=== PATIENT | male | born 1995 | race Caucasian/White ===

== ENCOUNTER 2021-02-02 18:59 | Emergency (ER) | payer OTHER ==
--- NOTE | 2021-02-02 19:54 | EDM.PDOC ---
ED HPI GENERAL MEDICAL PROBLEM - General Chief Complaint: Chest Pain Stated Complaint: CHEST PAIN Time Seen by Provider: 02/02/21 19:20 Source of Information: Reports: Patient History Limitations: Reports: No Limitations - History of Present Illness INITIAL COMMENTS - FREE TEXT/NARRATIVE: Mr. Cedeno is a very pleasant 25 year old man who now presents to the ED stating that he developed sudden-onset central chest pain around 08:00 CDT this morning, while at work. He describes the pain as a pressure-like sensation if he takes a deep breath, moves quickly, lifts something, bends over, or squats, and an achy sensation if he remains still. He has associated dyspnea and diaphoresis, but no nausea or sense of impending doom. No prior similar symptoms. The patient also reports of developing anterior throat pain around 1500. He states that it feels like his neck is swollen, and that is painful to swallow. He also states that he feels like his voice has changed. The patient states that he took some acetaminophen (he believes it was), with no improvement of his symptoms. Here in the ED, the patient is found to be hemodynamically stable, afebrile, saturating 100% on room air. He appears to be comfortable, in no acute distress. Prior to 8:00 this morning, the patient denies having a recent fever, chills, sore throat, ear pain, nasal or sinus congestion, cough, dyspnea, chest pain, palpitations, nausea, vomiting, constipation, diarrhea, abdominal pain, urinary symptoms, recent weight gain or weight loss, recent bloody bowel movements or black bowel movements, recent joint aches, headaches, or rashes. The patient's PCP is Annabelle Mcclellan NP. He has not received a COVID vaccination. Chest Pain Score (Numeric/FACES): 5 - Related Data Allergies Allergy/AdvReac Type Severity Reaction Status Date / Time No Known Allergies Allergy Verified 02/02/21 19:11 Home Meds: Home Meds Dextroamphetamine/Amphetamine [Adderall 20 mg Tablet] 30 mg PO BID 02/02/21 [History] Past Medical History Psychiatric History: Reports: ADHD Social & Family History - Tobacco Use Tobacco Use Status *Q: Never Tobacco User Tobacco Use Within Last Twelve Months: Vaping (Nicotine) Second Hand Smoke Exposure: No - Caffeine Use Caffeine Use: Reports: Coffee - Alcohol Use Alcohol Use History: No - Recreational Drug Use Recreational Drug Use: No - Living Situation & Occupation Living situation: Reports: , with Spouse, with Family (2 kids) 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 ED EXAM, GENERAL - Physical Exam Exam: See Below Exam Limited By: No Limitations General Appearance: Alert, WD/WN, No Apparent Distress Eye Exam: Bilateral Eye: EOMI, Normal Inspection Ears: Normal External Exam, Normal Canal, Hearing Grossly Normal, Normal TMs Nose: Normal Inspection, Normal Mucosa, No Blood Throat/Mouth: Normal Inspection, Normal Lips, Normal Teeth, Normal Gums, Normal Oropharynx, Normal Voice, No Airway Compromise Head: Atraumatic, Normocephalic Neck: Normal Inspection, Supple, Non-Tender, Full Range of Motion. No: Carotid Bruit (either side), Limited Range of Motion, Lymphadenopathy (L), Lymphadenopathy (R), Tender Lateral, Tender Midline, Thyromegaly Respiratory/Chest: No Respiratory Distress, Lungs Clear, Normal Breath Sounds, No Accessory Muscle Use, Chest Non-Tender, Other (Central chest pain is reproduced by having the patient press his hands together with outstretched arms in front of him. Pain is not reproduced by having him across either arm across his chest.) Cardiovascular: Normal Peripheral Pulses, Regular Rate, Rhythm, No Edema, No Gallop, No JVD, No Murmur, No Rub. No: Diastolic Murmur, Systolic Murmur Peripheral Pulses: 3+: Radial (L), Radial (R) GI/Abdominal: Normal Bowel Sounds, Soft, Non-Tender, No Organomegaly, No Distention, No Abnormal Bruit, No Mass Back Exam: Normal Inspection, Full Range of Motion, NT Extremities: Normal Inspection, Normal Range of Motion, No Pedal Edema, Normal Capillary Refill Neurological: Alert, Oriented, Normal Cognition, No Motor/Sensory Deficits Psychiatric: Normal Affect Skin Exam: Warm, Dry, Intact, Normal Color, No Rash #1 Interpretation EKG Date: 02/02/21 Time: 19:10 Rhythm: NSR Rate (Beats/Min): 81 Prosperity: Normal P-Wave: Present QRS: Normal ST-T: Normal QT: Normal Comparison: NA - No Prior EKG Course - Vital Signs Last Recorded V/S: Last Vital Signs Temp 36.8 C 02/02/21 19:09 Pulse 91 02/02/21 19:09 Resp 15 02/02/21 19:09 BP 137/80 02/02/21 19:09 Pulse Ox 100 02/02/21 19:09 Orthostatic Blood Pressure [ 117/72 Standing] Orthostatic Blood Pressure [ 123/65 Supine] - Orders/Labs/Meds Orders: Active Orders 24 hr Category Date Time Status Orthostatic Vital Signs [RC] STAT Care 02/02/21 19:43 Active Ang Chest [CT] Stat Exams 02/02/21 19:45 Taken Chest 2V [CR] Stat Exams 02/02/21 19:44 Taken BLOOD CULTURE [MREF] Stat Lab 02/02/21 22:05 Received BLOOD CULTURE [MREF] Stat Lab 02/02/21 22:12 Received Fluconazole/Normal Saline [Diflucan in NS 200 MG/100 ML Med 02/02/21 22:18 Active ] 200 mg Premix Bag 1 bag IV ONETIME Sodium Chloride 0.9% [Normal Saline] 1,000 ml Med 02/02/21 20:00 Active IV ASDIRECTED Sodium Chloride 0.9% [Normal Saline] 100 ml Med 02/02/21 20:45 Active IV ASDIRECTED Blood Culture x2 Reflex Set [OM.PC] Stat Oth 02/02/21 21:44 Ordered Isolation [COMM] Routine Oth 02/02/21 21:28 Ordered Medication Orders Sodium Chloride (Normal Saline) 1,000 mls @ 150 mls/hr IV ASDIRECTED DALJIT Last Admin: 02/02/21 19:59 Dose: 150 mls/hr Documented by: MARYAM Sodium Chloride (Normal Saline) 100 mls @ 100 mls/min IV ASDIRECTED DALJIT Last Admin: 02/02/21 20:39 Dose: 100 mls/min Documented by: KALEB Fluconazole/Sodium Chloride (200 mg/ Premix) 100 mls @ 100 mls/hr IV ONETIME STA Stop: 02/02/21 23:17 Last Admin: 02/02/21 22:43 Dose: 100 mls/hr Documented by: BONNIE Labs: Laboratory Tests 02/02/21 02/02/21 02/02/21 Range/Units 19:39 19:52 19:52 WBC 10.85 H (4.23-9.07) K/mm3 RBC 4.83 (4.63-6.08) M/mm3 Hgb 14.3 (13.7-17.5) gm/dl Hct 40.4 (40.1-51.0) % MCV 83.6 (79.0-92.2) fl MCH 29.6 (25.7-32.2) pg MCHC 35.4 (32.2-35.5) g/dl RDW Std Deviation 36.6 (35.1-43.9) fL Plt Count 229 (163-337) K/mm3 MPV 9.6 (9.4-12.3) fl Neutrophils % (Manual) 70 H (40-60) % Band Neutrophils % 0 (0-10) % Lymphocytes % (Manual) 22 (20-40) % Atypical Lymphs % 0 % Monocytes % (Manual) 8 (2-10) % Eosinophils % (Manual) 0 L (0.8-7.0) % Basophils % (Manual) 0 L (0.2-1.2) Platelet Estimate Adequate RBC Morph Comment Normal D-Dimer, Quantitative 1.16 H (0.19-0.50) mg/L Sodium (136-145) mEq/L Potassium (3.5-5.1) mEq/L Chloride (98-107) mEq/L Carbon Dioxide (21-32) mEq/L Anion Gap (5-15) BUN (7-18) mg/dL Creatinine (0.7-1.3) mg/dL Est Cr Clr Drug Dosing mL/min Estimated GFR (MDRD) (>60) mL/min BUN/Creatinine Ratio (14-18) Glucose (70-99) mg/dL Calcium (8.5-10.1) mg/dL Total Bilirubin (0.2-1.0) mg/dL AST (15-37) U/L ALT (16-63) U/L Alkaline Phosphatase (46-116) U/L Troponin I (0.00-0.056) ng/mL Total Protein (6.4-8.2) g/dl Albumin (3.4-5.0) g/dl Globulin gm/dL Albumin/Globulin Ratio (1-2) SARS-CoV-2 RNA (MARNIE) (NEGATIVE) Group A Strep (PCR) Not detected (NOT DETECT) 02/02/21 02/02/21 Range/Units 19:52 19:57 WBC (4.23-9.07) K/mm3 RBC (4.63-6.08) M/mm3 Hgb (13.7-17.5) gm/dl Hct (40.1-51.0) % MCV (79.0-92.2) fl MCH (25.7-32.2) pg MCHC (32.2-35.5) g/dl RDW Std Deviation (35.1-43.9) fL Plt Count (163-337) K/mm3 MPV (9.4-12.3) fl Neutrophils % (Manual) (40-60) % Band Neutrophils % (0-10) % Lymphocytes % (Manual) (20-40) % Atypical Lymphs % % Monocytes % (Manual) (2-10) % Eosinophils % (Manual) (0.8-7.0) % Basophils % (Manual) (0.2-1.2) Platelet Estimate RBC Morph Comment D-Dimer, Quantitative (0.19-0.50) mg/L Sodium 138 (136-145) mEq/L Potassium 3.2 L (3.5-5.1) mEq/L Chloride 101 (98-107) mEq/L Carbon Dioxide 26 (21-32) mEq/L Anion Gap 14.2 (5-15) BUN 22 H (7-18) mg/dL Creatinine 1.1 (0.7-1.3) mg/dL Est Cr Clr Drug Dosing 106.92 mL/min Estimated GFR (MDRD) > 60 (>60) mL/min BUN/Creatinine Ratio 20.0 H (14-18) Glucose 95 (70-99) mg/dL Calcium 9.3 (8.5-10.1) mg/dL Total Bilirubin 1.1 H (0.2-1.0) mg/dL AST 22 (15-37) U/L ALT 21 (16-63) U/L Alkaline Phosphatase 64 (46-116) U/L Troponin I < 0.017 (0.00-0.056) ng/mL Total Protein 7.6 (6.4-8.2) g/dl Albumin 4.5 (3.4-5.0) g/dl Globulin 3.1 gm/dL Albumin/Globulin Ratio 1.5 (1-2) SARS-CoV-2 RNA (MARNIE) Negative (NEGATIVE) Group A Strep (PCR) (NOT DETECT) Meds: Medications Generic Name Dose Route Start Last Admin Trade Name Freq PRN Reason Stop Dose Admin Sodium Chloride 1,000 mls @ 150 mls/hr 02/02/21 20:00 02/02/21 19:59 Normal Saline IV 150 mls/hr ASDIRECTED DALJIT Administration Sodium Chloride 100 mls @ 100 mls/min 02/02/21 20:45 02/02/21 20:39 Normal Saline IV 100 mls/min ASDIRECTED DALJIT Administration Fluconazole/Sodium Chloride 100 mls @ 100 mls/hr 02/02/21 22:18 02/02/21 22: 43 200 mg/ Premix IV 02/02/21 23:17 100 mls/hr ONETIME STA Administration Discontinued Medications Generic Name Dose Route Start Last Admin Trade Name Freq PRN Reason Stop Dose Admin Piperacillin Sod/Tazobactam 100 mls @ 200 mls/hr 02/02/21 21:39 02/02/21 21:54 Sod 4.5 gm/ Sodium Chloride IV 02/02/21 22:08 200 mls/hr ONETIME ONE Administration Iopamidol 100 ml 02/02/21 20:38 02/02/21 20:39 Iopamidol 755 Mg/Ml 100 Ml Bottle IVPUSH 02/02/21 20:39 100 ml ONETIME ONE Administration Potassium Chloride 20 meq 02/02/21 20:38 02/02/21 21:03 Potassium Chloride 20 Meq Tab.Er PO 02/02/21 20:39 20 meq ONETIME ONE Administration Sodium Chloride 10 ml 02/02/21 20:38 02/02/21 20:40 Sodium Chloride 0.9% 10 Ml Sdv FLUSH 02/02/21 20:39 10 ml ONETIME ONE Administration - Re-Assessments/Exams Free Text/Narrative Re-Assessment/Exam: 02/02/21 19:49 An ECG, obtained at triage, is grossly normal, with no ischemic changes. The reproducibility of the patient's chest pain by having him press his hands together with outstretched arms in front of him suggests a musculoskeletal christiano ology, however, he also reports anterior neck pain with pain to swallow, and a self-reported change in his voice. This raises the concern of an aneurysm of the aortic arch causing impairment of the recurrent laryngeal nerve. I have therefore ordered a work-up that includes orthostatics, numerous blood tests, a chest x-ray, a CT angiogram of the thoracic aorta, a group A strep by PCR test, and a swab for the SARS-CoV-2 virus and influenza A + B viruses. In the meantime, the patient will be given IV fluid. 02/02/21 20:34 The patient is not orthostatic. Two-view chest radiograph appears to be grossly normal. The cardiac silhouette is within normal limits. No pulmonary vascular congestion. No pleural effusions. No focal infiltrate. No pneumothorax. Formal read per the Radiologist pending. The patient's CBC is remarkable for mild leukocytosis of 10.85, but with 0% bandemia, and the remainder of his CBC being unremarkable. His CMP is remarkable for mild hypokalemia of 3.2, with the remainder of his CMP being unremarkable. His troponin is undetectably low. His D-dimer is elevated at 1.16. His group A strep by PCR is negative. Based on the above, I will order 20 mEq of oral KCl. 02/02/21 21:32 The patient's swab for the SARS-CoV-2 virus is negative. Contacted by the ad Radiologist that the CT angiogram of the chest is showing extensive pneumomediastinum with extension into the neck and subcutaneous soft tissues. No significant pneumothorax. The source of the pneumomediastinum is most likely the esophagus or trachea. The official report is to follow. Based on the above, I will need to start the patient on antibiotics. I would like to discuss the case with Dr. Sd lyon. 02/02/21 21:[address] Dickens at 21:36. She suspects a perforated esophagus. She recommended that we start the patient on IV Zosyn. He will need to be transferred. 02/02/21 21:46 Case discussed with Kemi at [facility] at 21:49. Unfortunately, they do not have any ICU beds, therefore cannot accept the patient. 02/02/21 22:21 The patient's swab for influenza A + B is negative. CT of the chest with contrast is read by [facility] as: 1. There is extensive pneumomediastinum extending into the neck region, incompletely imaged. Bilateral subcutaneous gas is also seen. A small amount of gas also extends into the thecal sac, series 10, image 170. 2. There are tiny bilateral apical pneumothoraces best appreciated on coronal image 82 of series 6. 3. Hepatic steatosis. Findings suggestive of constipation. Other findings/details as above. Case discussed with Aminata at [facility] at 21:55. Case then discussed with Dr. Puga, Hoisting Engineer at [facility], at 21:57. The CT and chest x-ray images were pushed to his clinic at 21:58. Dr. Eduardo, General Surgeon, added to the call at 22:03. She stated that most of these cases can be observed, and that the patient may not require surgery. Because of that, she felt that the patient could likely go to the medical floor. She recommended that we add Diflucan to the Zosyn. She recommended that we transfer the patient to their ED. Case then discussed with Dr. Flores, ED Physician at [facility], at 22:14. She accepted the patient for transfer to their ED. The patient will be transported by fixed wing. 02/02/21 22:31 Test results and our plan to transfer discussed with the patient. He is agreeable. He stated that he did not cough, retch, or vomit prior to the onset of his symptoms. Departure - Departure Time of Disposition: 22:31 Disposition: DC/Tfer to Acute Hospital 02 Condition: Good Clinical Impression: Pneumomediastinum, Hypokalemia - Discharge Information *PRESCRIPTION DRUG MONITORING PROGRAM REVIEWED*: Not Applicable *COPY OF PRESCRIPTION DRUG MONITORING REPORT IN PATIENT DOMENICA: Not Applicable Referrals: Annabelle Mcclellan NP [Primary Care Provider] - Forms: ED Department Discharge Sepsis Event Note (ED) - Focused Exam Vital Signs: Vital Signs Temp Pulse Resp BP Pulse Ox 02/02/21 19:09 36.8 C 91 15 137/80 100 - My Orders Last 24 Hours: My Active Orders 02/02/21 19:43 Orthostatic Vital Signs [RC] STAT 02/02/21 19:44 Chest 2V [CR] Stat 02/02/21 19:45 Ang Chest [CT] Stat 02/02/21 20:00 Sodium Chloride 0.9% [Normal Saline] 1,000 ml IV ASDIRECTED 02/02/21 20:45 Sodium Chloride 0.9% [Normal Saline] 100 ml IV ASDIRECTED 02/02/21 21:28 Isolation [COMM] Routine 02/02/21 21:44 Blood Culture x2 Reflex Set [OM.PC] Stat 02/02/21 22:05 BLOOD CULTURE [MREF] Stat 02/02/21 22:12 BLOOD CULTURE [MREF] Stat 02/02/21 22:18 Fluconazole/Normal Saline [Diflucan in NS 200 MG/100 ML] 200 mg Premix Bag 1 bag IV ONETIME - Assessment/Plan Last 24 Hours: My Active Orders 02/02/21 19:43 Orthostatic Vital Signs [RC] STAT 02/02/21 19:44 Chest 2V [CR] Stat 02/02/21 19:45 Ang Chest [CT] Stat 02/02/21 20:00 Sodium Chloride 0.9% [Normal Saline] 1,000 ml IV ASDIRECTED 02/02/21 20:45 Sodium Chloride 0.9% [Normal Saline] 100 ml IV ASDIRECTED 02/02/21 21:28 Isolation [COMM] Routine 02/02/21 21:44 Blood Culture x2 Reflex Set [OM.PC] Stat 02/02/21 22:05 BLOOD CULTURE [MREF] Stat 02/02/21 22:12 BLOOD CULTURE [MREF] Stat 02/02/21 22:18 Fluconazole/Normal Saline [Diflucan in NS 200 MG/100 ML] 200 mg Premix Bag 1 bag IV ONETIME
[2021-02-02] MEDS ORDERED: Sodium Chloride 0.9% 1,000 ML IV SCH (20:00)
[2021-02-02] MEDS ORDERED: Potassium Chloride 20 MEQ Tab.ER PO ONE (20:38)
[2021-02-02] MEDS ORDERED: Iopamidol 755 Mg/ML 100 ML Bottle IVPUSH ONE (20:38)
[2021-02-02] MEDS ORDERED: Sodium Chloride 0.9% 10 ML SDV FLUSH ONE (20:38)
[2021-02-02] MEDS ORDERED: Sodium Chloride 0.9% 100 ML IV SCH (20:45)
[2021-02-02] MEDS ORDERED: Piperacillin/Tazobactam 4.5 GM in Sodium Chloride 0.9% 100 ML IV ONE (21:39)
[2021-02-02] MEDS ORDERED: Fluconazole/Normal Saline 200 MG in Premix Bag 1 BAG IV STA (22:18)
--- NOTE | 2021-02-03 07:30 | CR ---
Chest: 2 views of the chest were obtained. Comparison: No prior chest imaging is available. Heart size and mediastinum are within normal limits. Scattered air is noted within the mediastinum and within the upper chest garcia. Lungs are clear. Very slight pneumothoraces are seen overlying both lung apices. No acute osseous abnormality is appreciated. Impression: 1. Diffuse chest wall air and mediastinal air. 2. Small apical pneumothoraces on both sides. 3. No acute parenchymal change is seen. Diagnostic code #3
--- NOTE | 2021-02-03 07:33 | CT ---
CT chest Technique: Multiple axial sections through the chest were obtained. Intravenous contrast was utilized. Study was obtained during the arterial phase as an aortogram. Comparison: Prior chest x-ray performed earlier on the same day (8:06 PM). Findings: Thoracic aorta shows no aneurysm. Pulmonary arteries show no discrete filling defects to indicate pulmonary embolism. Diffuse mediastinal air is seen. Air also extends around the trachea within the posterior mediastinum. Air is also noted on both sides of the upper chest wall which extends into the neck. Small apical pneumothoraces are noted on both sides. Lung window settings were obtained which appear within normal limits. No acute osseous abnormality is appreciated. Upper abdominal structures show partially visualized increased stool within the transverse colon. No acute abnormality is otherwise seen. Impression: 1. Diffuse mediastinal air and air within both upper lateral chest garcia. 2. Small apical pneumothoraces. 3. Slight increased stool within the transverse colon. 4. No other acute abnormality is appreciated. Diagnostic code #3 I agree with preliminary report from [facility], finalized on 02/02/21, 11:00 PM CDT, code 1
== END 2021-02-02 23:04 ==
LOC: JD.ED 18:59
DX: J98.2 Interstitial emphysema (principal); E87.6 Hypokalemia; Z20.822 Contact with and (suspected) exposure to COVID-19; Z79.899 Other long term (current) drug therapy
CPT/HCPCS: 36415; 71046; 71275; 80053; 84484; 85007; 85027; 85379; 87040; 87635; 87651; 87804; 93005; 96365; 96367; 99285; A9270; J1450; J2543; J7030; Q9967; U0002